=== PATIENT | female | born 1990 | race Caucasian/White ===

== ENCOUNTER → 2016-07-01 | Outpatient (CLI) | payer MEDICAID | LOC: MW.CHOBGYN 10:14 | PROVIDERS: ATTEND Advanced Practice Midwife | DX: Z34.90 Encounter for supervision of normal pregnancy, unspecified, unspecified trimester (principal) | CPT/HCPCS: 36415; 82950; 85025; 86850 ==

== ENCOUNTER 2016-09-22 07:21 | Inpatient (IN) | payer MEDICAID ==
[2016-09-22] MEDS ORDERED: Sodium Chloride 0.9% 2.5 ML Syringe FLUSH PRN (07:39)
[2016-09-22] MEDS ORDERED: Sodium Chloride 0.9% 10 ML Syringe FLUSH PRN (07:39)
[2016-09-22] MEDS ORDERED: Lidocaine 1% 50 ML MDV INJECT PRN (07:39)
[2016-09-22] MEDS ORDERED: Methylergonovine 0.2 MG/1 ML Amp IM PRN (07:39)
[2016-09-22] MEDS ORDERED: Butorphanol 1 MG/ML SDV IVPUSH PRN (07:39)
[2016-09-22] MEDS ORDERED: Water For Irrigation,Sterile 1,000 ML Container IRR PRN (07:39)
[2016-09-22] MEDS ORDERED: Nalbuphine 10 MG/1 ML Vial IVPUSH PRN (07:39)
[2016-09-22] MEDS ORDERED: Misoprostol 200 MCG Tab PO PRN (07:39)
[2016-09-22] MEDS ORDERED: Carboprost Tromethamine 250 MCG/1 ML Amp IM PRN (07:39)
[2016-09-22] MEDS ORDERED: Lactated Ringers 1,000 ML IV SCH (07:45)
[2016-09-22] MEDS ORDERED: Oxytocin/Lactated Ringers 30 UNIT/500 ML BAG IV SCH (07:45)
[2016-09-22] MEDS ORDERED: Witch Hazel Medicated Pads 40/Jar TOP PRN (08:10)
[2016-09-22] MEDS ORDERED: oxyCODONE 5 MG Tab PO PRN (08:10)
[2016-09-22] MEDS ORDERED: Ibuprofen 400 MG Tab PO PRN (08:10)
[2016-09-22] MEDS ORDERED: Acetaminophen 500 MG Tab PO PRN ×2 (08:10)
[2016-09-22] MEDS ORDERED: Ibuprofen 800 MG Tab PO PRN (08:10)
[2016-09-22] MEDS ORDERED: Docusate Sodium 100 MG Cap PO PRN (08:10)
[2016-09-22] MEDS ORDERED: Bisacodyl 10 MG Supp RECTAL PRN (08:10)
[2016-09-22] MEDS ORDERED: Benzocaine/Menthol 20%-0.5% Spray 78 GM Cannister TOP PRN (08:10)
[2016-09-22] MEDS ORDERED: Lanolin 100% Cream 7 GM Tube TOP PRN (08:10)
--- NOTE | 2016-09-22 08:38 | OR ---
SURGEON: Daniel Torres MD DATE OF PROCEDURE: DELIVERY NOTE: Ms. Hoover is a 26-year-old patient. She is para 3-0-0-3. She is term. She is followed in our clinic primarily by nurse data governance analyst, Binta Guajardo. She has no issue. Her GBS status was negative. The patient came this morning to Labor and Delivery in active labor and she was 7 cm dilated, and complete, intact with bulging bag of water and vertex presentation. The patient was admitted to the hospital. heart rate was category one. The patient progressed rather rapidly. She had spontaneous rupture of the membrane and then she was able to have a normal spontaneous vaginal delivery of a male fetus. The score reported to be 8 and 9. The weight is not available. The placenta delivered spontaneous, complete, and intact without any problem. There was no perineal laceration. No labial laceration. ESTIMATED BLOOD LOSS: 250-300 mL in this . There was no complication. ARELIS / MARNIE /[id number]
--- NOTE | 2016-09-23 10:36 | PCM.DCSUM1 ---
Discharge Summary - Hospital Course Free Text/Narrative:: Discharge home with infant. Follow up 6 weeks for post visit or sooner if needed. - Discharge Data Discharge Date: 09/23/16 Discharge Disposition: Home, Self-Care 01 Condition: Good - Patient Instructions Diet: Usual Diet as Tolerated Activity: As Tolerated, Rest and Relax Today Driving: Do Not Drive (for a few days) Showering/Bathing: May Shower Notify Provider of: Fever, Increased Pain, Swelling and Redness, Nausea and/or Vomiting Other/Special Instructions: Discharge home with infant. Follow up 6 weeks for post visit or sooner if needed. - Discharge Plan Home Medications: Home Meds Hydrocodone/Acetaminophen [[place] 10-325] 1 tab PO TID PRN 02/22/14 [History] Ondansetron [Zofran Odt] 8 mg SL TID PRN 02/22/14 [History] Tamsulosin HCl [Flomax] 0.4 mg PO DAILY 02/22/14 [History] Referrals: [facility] [Outside] Binta Guajardo CNM [Primary Care Provider] - 11/04/16 10:30 am - General Info Date of Service: 09/23/16 Functional Status: Reports: pain controlled, tolerating diet, ambulating, urinating - Review of Systems General: Reports: No Symptoms HEENT: Reports: no symptoms Pulmonary: Reports: no symptoms Cardiovascular: Reports: No Symptoms Gastrointestinal: Reports: No symptoms Genitourinary: Reports: no symptoms Musculoskeletal: Reports: no symptoms Skin: Reports: no symptoms Neurological: Reports: No Symptoms Psychiatric: Reports: no symptoms - Patient Data Vitals - Most Recent: Last Vital Signs Temp 37.0 C 09/23/16 04:00 Pulse 94 09/23/16 04:00 Resp 14 09/23/16 04:00 BP 122/74 09/23/16 04:00 Pulse Ox 94 L 09/23/16 04:00 Weight - Most Recent: 139.253 kg Lab Results - Last 24 hrs: Laboratory Results - last 24 hr 09/23/16 Range/Units 06:13 Hgb 12.7 (12.0-16.0) g/dL Hct 38.2 (36.0-46.0) % Med Orders - Current: Current Medications Acetaminophen (Tylenol Extra Strength) 500 mg PO Q4H PRN PRN Reason: Pain Acetaminophen (Tylenol Extra Strength) 1,000 mg PO Q4H PRN PRN Reason: Pain Last Admin: 09/22/16 17:25 Dose: 1,000 mg Benzocaine/Menthol (Dermoplast Pain Relief 20%-0.5% [place]) 78 gm TOP ASDIRECTED PRN PRN Reason: Perineal Comfort Measure Last Admin: 09/22/16 11:10 Dose: 1 canister Bisacodyl (Dulcolax) 10 mg RECTAL .ONCE PRN PRN Reason: Constipation Butorphanol Tartrate (Stadol) 1 mg IVPUSH Q1H PRN PRN Reason: Pain Carboprost Tromethamine (Hemabate Ds) 250 mcg IM ASDIRECTED PRN PRN Reason: Post Hemorrhage Docusate Sodium (Colace) 100 mg PO BID PRN PRN Reason: Constipation Emollient Ointment (Lansinoh Hpa) 0 gm TOP ASDIRECTED PRN PRN Reason: Sore Nipples Lactated Ringer's (Ringers, Lactated) 1,000 mls @ 150 mls/hr IV ASDIRECTED RAVI Last Admin: 09/22/16 07:45 Dose: 150 mls/hr Ibuprofen (Motrin) 400 mg PO Q4H PRN PRN Reason: Pain Ibuprofen (Motrin) 800 mg PO Q6H PRN PRN Reason: Pain Last Admin: 09/23/16 06:38 Dose: 800 mg Lidocaine HCl (Xylocaine 1%) 50 ml INJECT .ONCE PRN PRN Reason: Laceration repair Methylergonovine Maleate (Methergine) 0.2 mg IM ASDIRECTED PRN PRN Reason: Post Hemorrhage Misoprostol (Cytotec) 200 mcg PO .ONCE PRN PRN Reason: Post Hemorrhage Oxycodone HCl (Oxycodone) 5 mg PO Q2H PRN PRN Reason: Pain Sodium Chloride (Saline Flush) 10 ml FLUSH ASDIRECTED PRN PRN Reason: Keep Vein Open Sodium Chloride (Saline Flush) 2.5 ml FLUSH ASDIRECTED PRN PRN Reason: Keep Vein Open Sterile Water (Sterile Water For Irrigation) 1,000 ml IRR ASDIRECTED PRN PRN Reason: delivery Witch Madelaine (Tucks) 1 pad TOP ASDIRECTED PRN PRN Reason: comfort care Last Admin: 09/22/16 11:08 Dose: 1 can Discontinued Medications Oxytocin/Lactated Ringer's (Pitocin In Lr 30 Units/500 Ml) 30 unit in 500 mls @ 2 mls/hr IV TITRATE RAVI; 2 MUNITS/MIN PRN Reason: Protocol Stop: 09/23/16 07:44 Last Admin: 09/22/16 08:05 Dose: 500 munits/min, 500 mls/hr Nalbuphine HCl (Nubain) 10 mg IVPUSH Q1H PRN PRN Reason: Pain (severe 7-10) Stop: 09/22/16 09:40 - Exam General: Reports: alert, oriented, cooperative, no acute distress Lungs: Reports: Normal respiratory effort Abdomen: Reports: soft, no tenderness, no distension (Female) Exam: Vaginal Bleeding Rectal (Female) Exam: Deferred Back Exam: Reports: Full Range of Motion Extremities: Reports: no edema Skin: Reports: warm, dry, intact Neurological: Reports: no new focal deficit Psy/Mental Status: Reports: alert, normal affect, normal mood *Q Meaningful Use (DIS) - VTE *Q VTE Criteria *Q: - Stroke *Q Stroke Criteria *Q: - AMI *Q AMI Criteria *Q:
[2016-09-23 12:51] VITALS: BP 129/79
== END 2016-09-23 12:37 | disposition home or self-care (01) | DRG 775 ==
LOC: MW.OBCHECK 07:21 → MW.OB 07:21 → MW.OBCHECK 08:05 → OBSVTOIN 08:05 → MW.OB 10:30
PROVIDERS: ADMIT Obstetrics & Gynecology; ATTEND Obstetrics & Gynecology
PROC: 10E0XZZ Delivery of Products of Conception, External Approach (ICD-10-PCS; principal; 2016-09-22)
DX: O80 Encounter for full-term uncomplicated delivery (principal); Z3A.39 39 weeks gestation of pregnancy; Z37.0 Single live birth
CPT/HCPCS: 36415; 59025; 85014; 85018; 85027; 86850; 86900; 86901; A9270-GY; J7120

== ENCOUNTER 2018-01-20 21:43 | Inpatient (IN) | payer OTHER ==
[2018-01-20] MEDS ORDERED: Sodium Chloride 0.9% 2.5 ML Syringe FLUSH PRN (23:08)
[2018-01-20] MEDS ORDERED: Butorphanol 1 MG/ML SDV IVPUSH PRN (23:08)
[2018-01-20] MEDS ORDERED: Nalbuphine 10 MG/1 ML Vial IVPUSH PRN (23:08)
[2018-01-20] MEDS ORDERED: Misoprostol 200 MCG Tab PO PRN (23:08)
[2018-01-20] MEDS ORDERED: Water For Irrigation,Sterile 1,000 ML Container IRR PRN (23:08)
[2018-01-20] MEDS ORDERED: Lidocaine 1% 50 ML MDV INJECT PRN (23:08)
[2018-01-20] MEDS ORDERED: Carboprost Tromethamine 250 MCG/1 ML Amp IM PRN (23:08)
[2018-01-20] MEDS ORDERED: Tranexamic Acid 1,000 MG in Sodium Chloride 0.9% 100 ML IV PRN (23:08)
[2018-01-20] MEDS ORDERED: Methylergonovine 0.2 MG/1 ML Amp IM PRN (23:08)
[2018-01-20] MEDS ORDERED: Sodium Chloride 0.9% 10 ML Syringe FLUSH PRN (23:08)
[2018-01-20] MEDS ORDERED: Oxytocin/0.9 % Sodium Chloride 30 UNIT/500 ML BAG IV SCH (23:15)
[2018-01-20] MEDS ORDERED: Lactated Ringers 1,000 ML IV SCH (23:15)
[2018-01-20] MEDS ORDERED: Docusate Sodium 100 MG Cap PO PRN (23:40)
[2018-01-20] MEDS ORDERED: Ibuprofen 400 MG Tab PO PRN (23:40)
[2018-01-20] MEDS ORDERED: oxyCODONE 5 MG Tab PO PRN (23:40)
[2018-01-20] MEDS ORDERED: Witch Hazel Medicated Pads 40/Jar TOP PRN (23:40)
[2018-01-20] MEDS ORDERED: Lanolin 100% Cream 7 GM Tube TOP PRN (23:40)
[2018-01-20] MEDS ORDERED: Acetaminophen 500 MG Tab PO PRN ×2 (23:40)
[2018-01-20] MEDS ORDERED: Bisacodyl 10 MG Supp RECTAL PRN (23:40)
[2018-01-20] MEDS ORDERED: Benzocaine/Menthol 20%-0.5% Spray 78 GM Cannister TOP PRN (23:40)
--- NOTE | 2018-01-20 23:49 | PCM.LDHP ---
L&D History of Present Illness - General Date of Service: 01/20/18 Admit Problem/Dx: Patient Status Order with Admit Dx/Problem 01/20/18 21:46 Patient Status [ADT] Routine 01/20/18 23:41 Patient Status [ADT] Routine Admission Diagnosis/Problem Admission Diagnosis/Problem 01/20/18 23:42 27yo EDC 01/26/2018 39 1/7wks A+, RI, GBS neg. Come to L&D in active labor and delivered within 2 hours. Source of Information: Patient History Limitations: Reports: No Limitations - History of Present Illness Timing/Duration: Reports: minutes: Location, : Reports: Abdomen Quality: Reports: Stabbing Improves with: Reports: None Worsens with: Reports: None Associated Symptoms: Reports: N - Related Data Allergies/Adverse Reactions: Allergies Allergy/AdvReac Type Severity Reaction Status Date / Time No Known Allergies Allergy Verified 01/20/18 22:01 Home Medications: Home Meds Escitalopram [Lexapro] 1 tab PO DAILY 01/20/18 [History] Ondansetron [Zofran ODT] 1 tab SL Q6H PRN 01/20/18 [History] hydrOXYzine pamoate [Hydroxyzine Pamoate] 1 - 2 cap PO Q6H PRN 01/20/18 [History ] Past Medical History Other Gastrointestinal History: Gallbladder removed, appendix removed Dermatologic History: Reports: Other (See Below) Other Dermatologic History: contact dermatitis - Past Surgical History GI Surgical History: Reports: Appendectomy, Cholecystectomy, Other (See Below) Other GI Surgeries/Procedures: tonsilectomy and adenoids removed Social & Family History - Family History Family Medical History: Noncontributory - Caffeine Use Caffeine Use: Reports: Coffee H&P Review of Systems - Review of Systems: Review Of Systems: See Below General: Reports: No Symptoms HEENT: Reports: No Symptoms Pulmonary: Reports: No Symptoms Cardiovascular: Reports: No Symptoms Gastrointestinal: Reports: No Symptoms Genitourinary: Reports: No Symptoms Musculoskeletal: Reports: No Symptoms Skin: Reports: No Symptoms Psychiatric: Reports: No Symptoms Neurological: Reports: No Symptoms Hematologic/Lymphatic: Reports: No Symptoms Immunologic: Reports: No Symptoms L&D Exam - Exam Exam: See Below - Vital Signs Weight: 136.531 kg - OB Specific Contraction Intensity: Strong Movement: Active Heart Tones: Present Heart Rate (FHR) Variability: Moderate (6-25 bmp) Presentation: Vertex - Rosetnhal Score Rosenthal Score Cervix Position: Anterior Rosenthal Score Consistency: Soft Rosenthal Score Effacement: >80% Rosenthal Score Dilation: > 5 cm Rosenthal Score Infant's Station: -1 ,0 Rosenthal Score Total: 12 - Exam General: Alert, Oriented, Cooperative HEENT: Hearing Intact Lungs: Normal Respiratory Effort GI/Abdominal Exam: Soft, Non-Tender Rectal Exam: Deferred Genitourinary: Normal external exam, Normal bimanual exam, Vaginal bleeding Back Exam: Normal Inspection, Full Range of Motion Extremities: Normal Inspection, Normal Range of Motion, Non-Tender, No Pedal Edema, Normal Capillary Refill Skin: Warm, Dry, Intact Neurological: Cranial Nerves Intact, Reflexes Equal Bilateral, Strength Equal Bilateral, Normal Speech, Normal Tone Psychiatric: Alert, Normal Affect, Normal Mood - Patient Data Lab Results Last 24 hrs: Laboratory Results - last 24 hr 01/20/18 Range/Units 23:15 WBC 13.68 H (4.0-11.0) K/uL RBC 4.42 (4.30-5.90) M/uL Hgb 14.3 (12.0-16.0) g/dL Hct 41.8 (36.0-46.0) % MCV 94.6 (80.0-98.0) fL MCH 32.4 H (27.0-32.0) pg MCHC 34.2 (31.0-37.0) g/dL RDW Std Deviation 48.7 (28.0-62.0) fl RDW Coeff of Kaela 14 (11.0-15.0) % Plt Count 215 (150-400) K/uL MPV 11.40 (7.40-12.00) fL Nucleated RBC % 0.0 /100WBC Nucleated RBCs # 0 K/uL Result Diagrams: 01/20/18 23:15 - Problem List (1) Supervision of normal IUP (intrauterine ) in multigravida SNOMED Code(s): 146429718, 769961849, 185109172 ICD Code: Z34.80 - ENCOUNTER FOR SUPRVSN OF NORMAL , UNSP TRIMESTER Status: Acute Priority: High Current Visit: Yes Qualifiers: Trimester: third trimester Qualified Code(s): Z34.83 - Encounter for supervision of other normal , third trimester (2) (normal spontaneous vaginal delivery) SNOMED Code(s): 98195906 ICD Code: O80 - ENCOUNTER FOR FULL-TERM UNCOMPLICATED DELIVERY Status: Acute Priority: High Current Visit: Yes Problem List Initiated/Reviewed/Updated: Yes Orders Last 24hrs: Active Orders 24 hr Category Date Time Status Patient Status [ADT] Routine ADT 01/20/18 23:41 Ordered Heart Tones [RC] CONTINUOUS Care 01/20/18 23:08 Inactive Non Stress Test [RC] PER UNIT ROUTINE Care 01/20/18 21:46 Inactive Non Stress Test [RC] PER UNIT ROUTINE Care 01/20/18 23:08 Inactive May Shower [RC] ASDIRECTED Care 01/20/18 23:08 Inactive May Shower [RC] ASDIRECTED Care 01/20/18 23:40 Ordered Notify Provider [RC] PRN Care 01/20/18 23:08 Inactive Up ad Nicky [RC] ASDIRECTED Care 01/20/18 21:46 Inactive Up ad Nicky [RC] ASDIRECTED Care 01/20/18 23:40 Ordered Vaginal Exam [RC] Click to Edit Care 01/20/18 21:46 Inactive Vital Signs [RC] PER UNIT ROUTINE Care 01/20/18 21:46 Inactive Vital Signs [RC] PER UNIT ROUTINE Care 01/20/18 23:40 Ordered Regular Diet [DIET] Diet 01/21/18 Breakfast Ordered TYPE AND SCREEN [BBK] Routine Lab 01/20/18 23:15 Stop Req Acetaminophen [Tylenol Extra Strength] Med 01/20/18 23:40 Ordered 1,000 mg PO Q4H PRN Acetaminophen [Tylenol Extra Strength] Med 01/20/18 23:40 Ordered 500 mg PO Q4H PRN Benzocaine/Menthol [Dermoplast Pain Relief 20%-0.5% Med 01/20/18 23:40 Ordered [place]] 78 gm TOP ASDIRECTED PRN Bisacodyl [Dulcolax] Med 01/20/18 23:40 Ordered 10 mg RECTAL ONETIME PRN Docusate Sodium [Colace] Med 01/20/18 23:40 Ordered 100 mg PO BID PRN Ibuprofen [Motrin] Med 01/20/18 23:40 Ordered 400 mg PO Q4H PRN Ibuprofen [Motrin] Med 01/20/18 23:40 Ordered 800 mg PO Q6H PRN Lanolin [Lansinoh HPA] Med 01/20/18 23:40 Ordered See Dose Instructions TOP ASDIRECTED PRN Witch Madelaine [Tucks] Med 01/20/18 23:40 Ordered 1 pad TOP ASDIRECTED PRN oxyCODONE Med 01/20/18 23:40 Ordered 5 mg PO Q2H PRN Assess Lochia [WOMSER] Per Unit Routine Oth 01/20/18 23:40 Ordered Assess Uterine Involution [WOMSER] Per Unit Routine Oth 01/20/18 23:40 Ordered Peripheral IV Discontinue [OM.PC] Routine Oth 01/20/18 23:40 Ordered Resuscitation Status Routine Resus Stat 01/20/18 23:40 Ordered Medication Orders Acetaminophen (Tylenol Extra Strength) 500 mg PO Q4H PRN PRN Reason: Pain Acetaminophen (Tylenol Extra Strength) 1,000 mg PO Q4H PRN PRN Reason: Pain Benzocaine/Menthol (Dermoplast Pain Relief 20%-0.5% [place]) 78 gm TOP ASDIRECTED PRN PRN Reason: Perineal Comfort Measure Bisacodyl (Dulcolax) 10 mg RECTAL ONETIME PRN PRN Reason: Constipation Docusate Sodium (Colace) 100 mg PO BID PRN PRN Reason: Constipation Emollient Ointment (Lansinoh Hpa) 0 gm TOP ASDIRECTED PRN PRN Reason: Sore Nipples Ibuprofen (Motrin) 400 mg PO Q4H PRN PRN Reason: Pain Ibuprofen (Motrin) 800 mg PO Q6H PRN PRN Reason: Pain Oxycodone HCl (Oxycodone) 5 mg PO Q2H PRN PRN Reason: Pain Witch Madelaine (Tucks) 1 pad TOP ASDIRECTED PRN PRN Reason: comfort care Assessment/Plan Comment:: Labor/Delivery A: 27yo EDC 01/26/2018 39 1/7wks A+, RI, GBS neg. Come to L&D in active labor and delivered within 2 hours. of viable female, delivered by Nadia BECKFORD with precipitous delivery, APGARS 8/9, Wt: 8lb 8oz, Intact perineum, EBL 150cc, mother and baby bonding well in recovery. P: Admit, routine pp plan of care
--- NOTE | 2018-01-20 23:53 | PCM.DEL ---
L & D Note - General Info Date of Service: 01/20/18 Mother's Due Date: 01/26/18 - Delivery Note Labor: Spontaneous Delivery Outcome: Livebirth Infant Delivery Method: Spontaneous Vaginal Delivery-Single Delivery Mode: Spontaneous Presentation: Vertex Nuchal Cord: Present Anesthesia Type: None Amniotic Fluid Description: Meconium Stained Episiotomy Type: None Laceration: None Placenta: Intact, Spontaneous Cord: 3 Vessels Estimated Blood Loss: 150 Resuscitation Needed: No Score 1 min: 8 Score 5 min: 9 Second Stage Interventions: Reports: Pushing, Pulls Own Legs Back Delivery Comments (Free Text/Narrative):: Pt arrived to L&D at 2250 and delivered at 2315. ANALY Montero delivered. Mother and baby healthy. I delivered placenta grossly intact. Inspection noted intact perineum. EBL 150cc. Mother and baby stable in recovery. - General Info Date of Service: 01/20/18 Admission Dx/Problem (Free Text): Patient Status Order with Admit Dx/Problem 01/20/18 21:46 Patient Status [ADT] Routine 01/20/18 23:41 Patient Status [ADT] Routine Admission Diagnosis/Problem Admission Diagnosis/Problem 01/20/18 23:42 27yo EDC 01/26/2018 39 1/7wks A+, RI, GBS neg. Come to L&D in active labor and delivered within 2 hours. Functional Status: Reports: Pain Controlled, Tolerating Diet - Review of Systems General: Reports: No Symptoms HEENT: Reports: No Symptoms Pulmonary: Reports: No Symptoms Cardiovascular: Reports: No Symptoms Gastrointestinal: Reports: No Symptoms Genitourinary: Reports: No Symptoms Musculoskeletal: Reports: No Symptoms Skin: Reports: No Symptoms Neurological: Reports: No Symptoms Psychiatric: Reports: No Symptoms - Patient Data Weight - Most Recent: 136.531 kg Lab Results Last 24 Hours: Laboratory Results - last 24 hr 01/20/18 Range/Units 23:15 WBC 13.68 H (4.0-11.0) K/uL RBC 4.42 (4.30-5.90) M/uL Hgb 14.3 (12.0-16.0) g/dL Hct 41.8 (36.0-46.0) % MCV 94.6 (80.0-98.0) fL MCH 32.4 H (27.0-32.0) pg MCHC 34.2 (31.0-37.0) g/dL RDW Std Deviation 48.7 (28.0-62.0) fl RDW Coeff of Kaela 14 (11.0-15.0) % Plt Count 215 (150-400) K/uL MPV 11.40 (7.40-12.00) fL Nucleated RBC % 0.0 /100WBC Nucleated RBCs # 0 K/uL Med Orders - Current: Current Medications Acetaminophen (Tylenol Extra Strength) 500 mg PO Q4H PRN PRN Reason: Pain Acetaminophen (Tylenol Extra Strength) 1,000 mg PO Q4H PRN PRN Reason: Pain Benzocaine/Menthol (Dermoplast Pain Relief 20%-0.5% [place]) 78 gm TOP ASDIRECTED PRN PRN Reason: Perineal Comfort Measure Bisacodyl (Dulcolax) 10 mg RECTAL ONETIME PRN PRN Reason: Constipation Docusate Sodium (Colace) 100 mg PO BID PRN PRN Reason: Constipation Emollient Ointment (Lansinoh Hpa) 0 gm TOP ASDIRECTED PRN PRN Reason: Sore Nipples Ibuprofen (Motrin) 400 mg PO Q4H PRN PRN Reason: Pain Ibuprofen (Motrin) 800 mg PO Q6H PRN PRN Reason: Pain Oxycodone HCl (Oxycodone) 5 mg PO Q2H PRN PRN Reason: Pain Witch Madelaine (Tucks) 1 pad TOP ASDIRECTED PRN PRN Reason: comfort care Discontinued Medications Butorphanol Tartrate (Stadol) 1 mg IVPUSH Q1H PRN PRN Reason: Pain Carboprost Tromethamine (Hemabate Ds) 250 mcg IM ASDIRECTED PRN PRN Reason: Post Hemorrhage Tranexamic Acid 1,000 mg/ (Sodium Chloride) 110 mls @ 660 mls/hr IV ONETIME PRN PRN Reason: Bleeding Lactated Ringer's (Ringers, Lactated) 1,000 mls @ 150 mls/hr IV ASDIRECTED RAVI Oxytocin/Sodium Chloride (Oxytocin 30 Unit/500 Ml-Ns) 30 unit in 500 mls @ 999 mls/hr IV TITRATE RAVI Lidocaine HCl (Xylocaine 1%) 50 ml INJECT ONETIME PRN PRN Reason: Laceration repair Methylergonovine Maleate (Methergine) 0.2 mg IM ASDIRECTED PRN PRN Reason: Post Hemorrhage Misoprostol (Cytotec) 200 mcg PO ONETIME PRN PRN Reason: Post Hemorrhage Nalbuphine HCl (Nubain) 10 mg IVPUSH Q1H PRN PRN Reason: Pain (severe 7-10) Sodium Chloride (Saline Flush) 10 ml FLUSH ASDIRECTED PRN PRN Reason: Keep Vein Open Sodium Chloride (Saline Flush) 2.5 ml FLUSH ASDIRECTED PRN PRN Reason: Keep Vein Open Sterile Water (Sterile Water For Irrigation) 1,000 ml IRR ASDIRECTED PRN PRN Reason: delivery - Exam General: Alert, Oriented, Cooperative, No Acute Distress Lungs: Normal Respiratory Effort GI/Abdominal Exam: Normal Bowel Sounds, Soft, Non-Tender, No Organomegaly, No Distention, No Abnormal Bruit, No Mass, Pelvis Stable (Female) Exam: Normal External Exam, Normal Bimanual Exam, Vaginal Bleeding Back Exam: Normal Inspection, Full Range of Motion Extremities: Normal Inspection, Normal Range of Motion, Non-Tender, No Pedal Edema, Normal Capillary Refill Skin: Warm, Dry, Intact Wound/Incisions: Healing Well Neurological: No New Focal Deficit, Normal Speech, Normal Tone, Strength Equal Bilateral Psy/Mental Status: Alert, Normal Affect, Normal Mood - Problem List & Annotations (1) Supervision of normal IUP (intrauterine ) in multigravida SNOMED Code(s): 338605021, 967707003, 527538553 Code(s): Z34.80 - ENCOUNTER FOR SUPRVSN OF NORMAL , UNSP TRIMESTER Status: Acute Priority: High Current Visit: Yes Qualifiers: Trimester: third trimester Qualified Code(s): Z34.83 - Encounter for supervision of other normal , third trimester (2) (normal spontaneous vaginal delivery) SNOMED Code(s): 07469723 Code(s): O80 - ENCOUNTER FOR FULL-TERM UNCOMPLICATED DELIVERY Status: Acute Priority: High Current Visit: Yes - Problem List Review Problem List Initiated/Reviewed/Updated: Yes - My Orders Last 24 Hours: My Active Orders 01/20/18 21:46 Non Stress Test [RC] PER UNIT ROUTINE Up ad Nicky [RC] ASDIRECTED Vaginal Exam [RC] Click to Edit Vital Signs [RC] PER UNIT ROUTINE 01/20/18 23:08 Heart Tones [RC] CONTINUOUS Non Stress Test [RC] PER UNIT ROUTINE May Shower [RC] ASDIRECTED Notify Provider [RC] PRN 01/20/18 23:15 TYPE AND SCREEN [BBK] Routine 01/20/18 23:40 May Shower [RC] ASDIRECTED Up ad Nicky [RC] ASDIRECTED Vital Signs [RC] PER UNIT ROUTINE Acetaminophen [Tylenol Extra Strength] 1,000 mg PO Q4H PRN Acetaminophen [Tylenol Extra Strength] 500 mg PO Q4H PRN Benzocaine/Menthol [Dermoplast Pain Relief 20%-0.5% [place]] 78 gm TOP ASDIRECTED PRN Bisacodyl [Dulcolax] 10 mg RECTAL ONETIME PRN Docusate Sodium [Colace] 100 mg PO BID PRN Ibuprofen [Motrin] 400 mg PO Q4H PRN Ibuprofen [Motrin] 800 mg PO Q6H PRN Lanolin [Lansinoh HPA] See Dose Instructions TOP ASDIRECTED PRN Witch Madelaine [Tucks] 1 pad TOP ASDIRECTED PRN oxyCODONE 5 mg PO Q2H PRN Assess Lochia [WOMSER] Per Unit Routine Assess Uterine Involution [WOMSER] Per Unit Routine Peripheral IV Discontinue [OM.PC] Routine Resuscitation Status Routine 01/20/18 23:41 Patient Status [ADT] Routine 01/21/18 Breakfast Regular Diet [DIET] - Plan Plan:: Labor/Delivery A: 27yo EDC 01/26/2018 39 1/7wks A+, [place], GBS neg. Come to L&D in active labor and delivered within 2 hours. of viable female, delivered by Nadia BECKFORD with precipitous delivery, APGARS 8/9, Wt: 8lb 8oz, Intact perineum, EBL 150cc, mother and baby bonding well in recovery. P: Admit, routine pp plan of care
[2018-01-21] MEDS: Ibuprofen 800 MG Tab PO PRN (12:02)
[2018-01-22] MEDS: Ibuprofen 800 MG Tab PO PRN (03:03)
--- NOTE | 2018-01-22 07:55 | PCM.DCSUM1 ---
Discharge Summary - Hospital Course Free Text/Narrative:: Discharge home with . Follow up in 6 weeks or sooner if needed. Diagnosis: Stroke: No - Discharge Data Discharge Date: 01/22/18 Discharge Disposition: Home, Self-Care 01 Condition: Good - Discharge Diagnosis/Problem(s) (1) Supervision of normal IUP (intrauterine ) in multigravida SNOMED Code(s): 522068097, 458697741, 722546176 ICD Code: Z34.80 - ENCOUNTER FOR SUPRVSN OF NORMAL , UNSP TRIMESTER Status: Acute Priority: High Current Visit: Yes Qualifiers: Trimester: third trimester Qualified Code(s): Z34.83 - Encounter for supervision of other normal , third trimester (2) (normal spontaneous vaginal delivery) SNOMED Code(s): 37645040 ICD Code: O80 - ENCOUNTER FOR FULL-TERM UNCOMPLICATED DELIVERY Status: Acute Priority: High Current Visit: Yes - Patient Instructions Diet: Usual Diet as Tolerated Activity: As Tolerated, No Strenuous Activities, Rest and Relax Today Driving: May Drive Today Showering/Bathing: May Shower Notify Provider of: Fever, Increased Pain, Swelling and Redness, Nausea and/or Vomiting Other/Special Instructions: Discharge home with . Follow up in 6 weeks or sooner if needed. - Discharge Plan *PRESCRIPTION DRUG MONITORING PROGRAM REVIEWED*: Not Applicable *COPY OF PRESCRIPTION DRUG MONITORING REPORT IN PATIENT CHIARA: Not Applicable Home Medications: Home Meds Escitalopram [Lexapro] 1 tab PO DAILY 01/20/18 [History] Ondansetron [Zofran ODT] 1 tab SL Q6H PRN 01/20/18 [History] hydrOXYzine pamoate [Hydroxyzine Pamoate] 1 - 2 cap PO Q6H PRN 01/20/18 [History ] Referrals: [facility] [Outside] Binta Guajardo CNM [Primary Care Provider] - 02/27/18 9:30 am - General Info Date of Service: 01/22/18 Admission Dx/Problem (Free Text: Patient Status Order with Admit Dx/Problem 01/20/18 21:46 Patient Status [ADT] Routine 01/20/18 23:41 Patient Status [ADT] Routine Admission Diagnosis/Problem Admission Diagnosis/Problem 01/20/18 23:42 27yo [facility] 01/26/2018 39 1/7wks A+, RI, GBS neg. Come to L&D in active labor and delivered within 2 hours. Functional Status: Reports: Pain Controlled, Tolerating Diet, Ambulating, Urinating - Review of Systems General: Reports: No Symptoms HEENT: Reports: No Symptoms Pulmonary: Reports: No Symptoms Cardiovascular: Reports: No Symptoms Gastrointestinal: Reports: No Symptoms Genitourinary: Reports: No Symptoms Musculoskeletal: Reports: No Symptoms Skin: Reports: No Symptoms Neurological: Reports: No Symptoms Psychiatric: Reports: No Symptoms - Patient Data Vitals - Most Recent: Last Vital Signs Temp 36.3 C 01/21/18 20:00 Pulse 82 01/21/18 20:00 Resp 16 01/21/18 20:00 BP 115/69 01/21/18 20:00 Pulse Ox 96 01/21/18 20:00 Weight - Most Recent: 136.531 kg Med Orders - Current: Current Medications Acetaminophen (Tylenol Extra Strength) 500 mg PO Q4H PRN PRN Reason: Pain Acetaminophen (Tylenol Extra Strength) 1,000 mg PO Q4H PRN PRN Reason: Pain Benzocaine/Menthol (Dermoplast Pain Relief 20%-0.5% Collbran) 78 gm TOP ASDIRECTED PRN PRN Reason: Perineal Comfort Measure Bisacodyl (Dulcolax) 10 mg RECTAL ONETIME PRN PRN Reason: Constipation Docusate Sodium (Colace) 100 mg PO BID PRN PRN Reason: Constipation Emollient Ointment (Lansinoh Hpa) 0 gm TOP ASDIRECTED PRN PRN Reason: Sore Nipples Ibuprofen (Motrin) 400 mg PO Q4H PRN PRN Reason: Pain Ibuprofen (Motrin) 800 mg PO Q6H PRN PRN Reason: Pain Last Admin: 01/22/18 03:03 Dose: 800 mg Oxycodone HCl (Oxycodone) 5 mg PO Q2H PRN PRN Reason: Pain Witch Madelaine (Tucks) 1 pad TOP ASDIRECTED PRN PRN Reason: comfort care Discontinued Medications Butorphanol Tartrate (Stadol) 1 mg IVPUSH Q1H PRN PRN Reason: Pain Carboprost Tromethamine (Hemabate Ds) 250 mcg IM ASDIRECTED PRN PRN Reason: Post Hemorrhage Tranexamic Acid 1,000 mg/ (Sodium Chloride) 110 mls @ 660 mls/hr IV ONETIME PRN PRN Reason: Bleeding Lactated Ringer's (Ringers, Lactated) 1,000 mls @ 150 mls/hr IV ASDIRECTED RAVI Oxytocin/Sodium Chloride (Oxytocin 30 Unit/500 Ml-Ns) 30 unit in 500 mls @ 999 mls/hr IV TITRATE [facility] Last Admin: 01/20/18 23:23 Dose: 999 mls/hr Lidocaine HCl (Xylocaine 1%) 50 ml INJECT ONETIME PRN PRN Reason: Laceration repair Methylergonovine Maleate (Methergine) 0.2 mg IM ASDIRECTED PRN PRN Reason: Post Hemorrhage Misoprostol (Cytotec) 200 mcg PO ONETIME PRN PRN Reason: Post Hemorrhage Nalbuphine HCl (Nubain) 10 mg IVPUSH Q1H PRN PRN Reason: Pain (severe 7-10) Sodium Chloride (Saline Flush) 10 ml FLUSH ASDIRECTED PRN PRN Reason: Keep Vein Open Sodium Chloride (Saline Flush) 2.5 ml FLUSH ASDIRECTED PRN PRN Reason: Keep Vein Open Sterile Water (Sterile Water For Irrigation) 1,000 ml IRR ASDIRECTED PRN PRN Reason: delivery - Exam General: Reports: Alert, Oriented, Cooperative, No Acute Distress Lungs: Reports: Normal Respiratory Effort GI/Abdominal Exam: Soft, Non-Tender (Female) Exam: Deferred, Vaginal Bleeding Rectal (Female) Exam: Deferred Back Exam: Reports: Normal Inspection, Full Range of Motion Extremities: Normal Inspection, Normal Range of Motion, Non-Tender, No Pedal Edema, Normal Capillary Refill Skin: Reports: Warm, Dry, Intact Wound/Incisions: Reports: Healing Well Neurological: Reports: No New Focal Deficit, Normal Speech, Normal Tone, Strength Equal Bilateral Psy/Mental Status: Reports: Alert, Normal Affect, Normal Mood
[2018-01-22 09:54] VITALS: BP 117/60
== END 2018-01-22 09:50 | disposition home or self-care (01) | DRG 807 ==
LOC: MW.OBCHECK 21:43 → MW.OB 23:08 → OBSVTOIN 23:15 → MW.OB 23:15
PROVIDERS: ADMIT Obstetrics & Gynecology; ATTEND Advanced Practice Midwife
PROC: 10E0XZZ Delivery of Products of Conception, External Approach (ICD-10-PCS; principal; 2018-01-20)
DX: O62.3 Precipitate labor (principal); Z37.0 Single live birth; O69.1XX0 Labor and delivery complicated by cord around neck, with compression, not applicable or unspecified; O77.0 Labor and delivery complicated by meconium in amniotic fluid; Z3A.39 39 weeks gestation of pregnancy
CPT/HCPCS: 36415; 59025; 59409; 85027; 86850; 86900; 86901; A9270-GY; J2590

== ENCOUNTER 2019-05-20 18:50 | Emergency (ER) | payer MEDICAID, OTHER, SELFPAY ==
--- NOTE | 2019-05-20 19:03 | EDM.PDOC ---
ED HPI GENERAL MEDICAL PROBLEM - General Chief Complaint: ENT Problem Stated Complaint: SICK Time Seen by Provider: 05/20/19 19:15 Source of Information: Reports: Patient History Limitations: Reports: No Limitations - History of Present Illness INITIAL COMMENTS - FREE TEXT/NARRATIVE: HISTORY AND PHYSICAL: History of present illness: Patient is a 29-year-old female who presents to the emergency room with complaints of left ear and sinus pain x4 days. She states that she was recently placed on amoxicillin but the pain has increased. Patient denies any fever, chills, headache, change in vision, syncope or near syncope. Denies any chest pain, back pain, shortness of breath or cough. Denies any GI or symptoms. Patient has been eating and drinking appropriately. Review of systems: As per history of present illness and below otherwise all systems reviewed and negative. Past medical history: As per history of present illness and as reviewed below otherwise noncontributory. Surgical history: As per history of present illness and as reviewed below otherwise noncontributory. Social history: See social history for further information Family history: As per history of present illness and as reviewed below otherwise noncontributory. Physical exam: General: Developed and well nourished 29-year-old female. Alert and oriented. Nontoxic-appearing and in no acute distress. HEENT: Atraumatic, normocephalic, pupils equal and reactive bilaterally, negative for conjunctival pallor or scleral icterus, mucous membranes moist, left frontal sinus tenderness with palpation, left TM is dull with effusion and no bulging, right TM normal, throat clear, neck supple, nontender, trachea midline. No drooling or trismus noted. No meningeal signs. No hot potato voice noted. Lungs: Clear to auscultation, breath sounds equal bilaterally, chest nontender. Heart: S1S2, regular rate and rhythm without overt murmur Abdomen: Soft, nondistended, nontender. Skin: Intact, warm, dry. No lesions or rashes noted. Extremities: Atraumatic, moves all extremities per self without difficulty or deficits, negative for cords or calf pain. Neurovascular unremarkable. Neuro: Awake, alert, oriented. Cranial nerves II through XII unremarkable. Cerebellum unremarkable. Motor and sensory unremarkable throughout. Exam nonfocal. Notes: Medication and supportive care measures were reviewed and discussed. Voices understanding and is agreeable to plan of care. Denies any further questions or concerns at this time. Diagnostics: None Therapeutics: Toradol IM Impression: Otitis media with effusion, left Plan: 1. Continue taking your antibiotic as directed. You can use a antihistamine such as Zyrtec or Benadryl. Consider using a Flonase nasal spray over the next several days. Please use Tylenol and/or Ibuprofen as needed for pain and fever management. 2. Get plenty of Rest. Encourage fluids to prevent dehydration. 3. Please follow up with your primary care provider. Return to the ED as needed as discussed. Definitive disposition and diagnosis as appropriate pending reevaluation and review of above. 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: Psychiatric History: Reports: Anxiety, Depression Dermatologic History: Reports: Other (See Below) Other Dermatologic History: contact dermatitis - Infectious Disease History Infectious Disease History: Reports: Chicken Pox, Shingles - Past Surgical History GI Surgical History: Reports: Appendectomy, Cholecystectomy, Other (See Below) Other GI Surgeries/Procedures: tonsilectomy and adenoids removed Social & Family History - Family History Family Medical History: Noncontributory Respiratory: Reports: COPD OBGYN: Reports: Oncologic: Reports: Breast, Cervix, Lung, Ovarian, Other (See Below) Other Oncologic Family History: stomach - Caffeine Use Caffeine Use: Reports: Coffee ED ROS ENT - Review of Systems Review Of Systems: Comprehensive ROS is negative, except as noted in HPI. ED EXAM, ENT - Physical Exam Exam: See Below (See dictation) Course - Vital Signs Last Recorded V/S: Last Vital Signs Temp 96.8 F 05/20/19 19:40 Pulse 75 05/20/19 19:40 Resp 18 05/20/19 19:40 BP 132/91 H 05/20/19 19:40 Pulse Ox 98 05/20/19 19:40 - Orders/Labs/Meds Meds: Medications Discontinued Medications Generic Name Dose Route Start Last Admin Trade Name Freq PRN Reason Stop Dose Admin Ketorolac Tromethamine 60 mg 05/20/19 19:21 05/20/19 19:29 Toradol IM 05/20/19 19:22 60 mg ONETIME ONE Administration Departure - Departure Time of Disposition: 19:26 Disposition: Home, Self-Care Clinical Impression: Otitis media with effusion Qualifiers: Laterality: left Qualified Code(s): H65.92 - Unspecified nonsuppurative otitis media, left ear - Discharge Information Prescriptions: Acetaminophen with Codeine [Tylenol with Codeine #3 Tablet] 1 each PO Q4HR PRN # 15 tablet PRN Reason: Pain Instructions: Otitis Media, Adult, [id number] Referrals: Rosemary Sepulveda MD [Primary Care Provider] - Forms: ED Department Discharge Additional Instructions: The following information is given to patients seen in the emergency department who are being discharged to home. This information is to outline your options for follow-up care. We provide all patients seen in our emergency department with a follow-up referral. The need for follow-up, as well as the timing and circumstances, are variable depending upon the specifics of your emergency department visit. If you don't have a primary care physician on staff, we will provide you with a referral. We always advise you to contact your personal physician following an emergency department visit to inform them of the circumstance of the visit and for follow-up with them and/or the need for any referrals to a consulting specialist. The emergency department will also refer you to a specialist when appropriate. This referral assures that you have the opportunity for follow-up care with a specialist. All of these measure are taken in an effort to provide you with optimal care, which includes your follow-up. Under all circumstances we always encourage you to contact your private physician who remains a resource for coordinating your care. When calling for follow-up care, please make the office aware that this follow-up is from your recent emergency room visit. If for any reason you are refused follow-up, please contact the [facility] Emergency Department at and asked to speak to the emergency department charge nurse. [facility] [address] [place] [address] [facility] [address] [place] [address] 1. Continue taking your antibiotic as directed. You can use a antihistamine such as Zyrtec or Benadryl, and consider using a Flonase nasal spray over the next several days. Please use Tylenol and/or Ibuprofen as needed for pain and fever management. 2. Get plenty of Rest. Encourage fluids to prevent dehydration. 3. Please follow up with your primary care provider. Return to the ED as needed as discussed. Sepsis Event Note - Focused Exam Vital Signs: Vital Signs Temp Pulse Resp BP Pulse Ox 05/20/19 19:40 96.8 F 75 18 132/91 H 98 05/20/19 19:00 96.8 F 89 16 132/83 100 Date Exam was Performed: 05/20/19 Time Exam was Performed: 21:31
[2019-05-20] MEDS ORDERED: Ketorolac 60 MG/2 ML SDV IM ONE (19:21)
[2019-05-20 19:43] VITALS: BP 132/91; PULSE 75
== END 2019-05-20 19:40 | disposition home or self-care (01) ==
LOC: MW.ED 18:50
DX: H65.92 Unspecified nonsuppurative otitis media, left ear (principal)
CPT/HCPCS: 96372; 99282; J1885

== ENCOUNTER 2022-03-15 19:07 | Emergency (ER) | payer BC, MEDICAID ==
[2022-03-15] MEDS ORDERED: Acetaminophen 325 MG Tab PO ONE (23:55)
[2022-03-15] MEDS ORDERED: Ibuprofen 400 MG Tab PO ONE (23:55)
[2022-03-16] MEDS ORDERED: Acetaminophen 500 MG Tab PO ONE (00:12)
[2022-03-16 07:49] VITALS: BP 123/78; PULSE 86
== END 2022-03-16 01:00 | disposition home or self-care (01) ==
LOC: MW.ED 19:07
DX: S93.402A Sprain of unspecified ligament of left ankle, initial encounter (principal); X50.1XXA Overexertion from prolonged static or awkward postures, initial encounter; Y93.01 Activity, walking, marching and hiking
CPT/HCPCS: 73610; 73630; 99283; A9270

== ENCOUNTER 2023-05-16 10:30 | Emergency (ER) | payer MEDICAID ==
[2023-05-16] MEDS ORDERED: Ketorolac 60 MG/2 ML SDV IM ONE (11:15)
[2023-05-16 12:28] VITALS: BP 130/94; PULSE 74
== END 2023-05-16 12:24 | disposition home or self-care (01) ==
LOC: MW.ED 10:30
DX: M54.50 Low back pain, unspecified (principal); Z90.49 Acquired absence of other specified parts of digestive tract
CPT/HCPCS: 72100; 96372; 99283; J1885